=== PATIENT | male | born 1990 | race African-American/Black ===

== ENCOUNTER 2016-10-22 16:50 | Emergency (ER) | payer SELFPAY ==
--- NOTE | ~2016-10-22 | CR142 ---
[facility]. [facility] A Service of [facility] & [facility] RADIOLOGY TEXT RESULTS PATIENT: ISAIAH CASTRO LOCATION: SED : [birth year] UNIT #: [id number] AGE: [address]: RADU LOVE PA-C SEX: M ORDER DR: [id number] [address] [address] [id number] E MR#: [id number] Acc #: [id number] NAME: ISAIAH CASTRO : 1990 SEX: M STUDY DATE/TIME: 10/22/2016 18:04 UNIT: SED ROOM: STUDY DESCRIPTION: CR Hand Min 3 Views Rt Attending Physician: Radu Love Pa-C Ordering Physician: Radu Love Pa-C Primary Care Physician: Primary Care Physician No MEDICAL IMAGING REPORT This report is preliminary unless electronic signature is present. EXAM Right hand 3 views HISTORY Hand pain after laceration. FINDINGS 3 views of the right hand were obtained with the fingers held in flexion, limiting evaluation of the phalanges. Bandage material overlies the soft tissues between the base of the first and second digits. No fracture, joint space narrowing or dislocation or opaque soft tissue foreign body is identified. IMPRESSION No fracture or opaque soft tissue foreign body is identified. Dictated by... Herman Asencio M.D. THIS IS AN ELECTRONICALLY VERIFIED REPORT Herman Asencio M.D. at 10/23/2016 12:54 PM YAMILETH/nahed TD: 10/23/2016 08:16 JOB #: [id number] MEDICAL IMAGING REPORT Page 1 of 1
--- NOTE | ~2016-10-22 | CR141 ---
[facility]. [facility] A Service of [facility] & [facility] RADIOLOGY TEXT RESULTS PATIENT: ISAIAH CASTRO LOCATION: SED : [birth year] UNIT #: [id number] AGE: [address]: RADU LOVE PA-C SEX: M ORDER DR: [id number] [address] [address] [id number] E MR#: [id number] Acc #: [id number] NAME: ISAIAH CASTRO : 1990 SEX: M STUDY DATE/TIME: 10/22/2016 18:04 UNIT: SED ROOM: STUDY DESCRIPTION: CR Hand Min 3 Views Lt Attending Physician: Radu Love Pa-C Ordering Physician: Radu Love Pa-C Primary Care Physician: Primary Care Physician No MEDICAL IMAGING REPORT This report is preliminary unless electronic signature is present. EXAM Left hand 3 views HISTORY Hand pain after laceration today. FINDINGS 3 views of the left hand were obtained with the fingers held in partial flexion, partly limiting evaluation of the IP joints. Bone alignment is satisfactory. Bandage overlies the base of the thumb. Soft tissue gas adjacent to the second metacarpal head suggesting soft tissue laceration. No opaque soft tissue foreign body. IMPRESSION No fracture or opaque soft tissue foreign body. Soft tissue gas adjacent to the second metacarpal head suggesting soft tissue laceration or penetrating trauma. Dictated by... Herman Asencio M.D. THIS IS AN ELECTRONICALLY VERIFIED REPORT Herman Asencio M.D. at 10/23/2016 12:54 PM YAMILETH/irais TD: 10/23/2016 08:23 JOB #: [id number] MEDICAL IMAGING REPORT Page 1 of 1
[2016-10-22] MEDS ORDERED: NO MEDICATIONS (17:03)
== END 2016-10-22 20:31 ==
LOC: SED 16:50
DX: S61.411A Laceration without foreign body of right hand, initial encounter (principal); S61.012A Laceration without foreign body of left thumb without damage to nail, initial encounter; Z98.890 Other specified postprocedural states; F17.200 Nicotine dependence, unspecified, uncomplicated; W26.0XXA Contact with knife, initial encounter; Y92.009 Unspecified place in unspecified non-institutional (private) residence as the place of occurrence of the external cause
CPT/HCPCS: 73130; 90471; 90715; 99284